=== PATIENT | female | born 1970 | race Caucasian/White ===

== ENCOUNTER 2018-10-02 22:09 | Emergency (ER) | payer OTHER ==
[2018-10-02] MEDS: ONDANSETRON (ODT) 4 MG TAB ODT (23:20)
[2018-10-02] MEDS: HYDROCODONE/APAP (10/325) TAB PO (23:21)
[2018-10-02] MEDS: IBUPROFEN 600 MG TAB PO (23:21)
[2018-10-02] MEDS ORDERED: CLINDAMYCIN 600 MG INJ IM (23:30)
[2018-10-02] MEDS: CLINDAMYCIN 300 MG INJ IM (23:47)
[2018-10-02] MEDS: LIDOCAINE 2% (MDV) 20 ML INJ INJ (23:57)
== END 2018-10-03 01:31 | disposition home or self-care (01) ==
LOC: FTE 10-03 01:31
DX: L02.511 Cutaneous abscess of right hand (principal); M75.92 Shoulder lesion, unspecified, left shoulder; I10 Essential (primary) hypertension
CPT/HCPCS: 10060; 73030; 96372; 99284-25